=== PATIENT | male | born 1985 | race Caucasian/White ===

== ENCOUNTER 2024-12-07 18:30 | Observation (INO) | payer BC ==
[2024-12-07] MEDS ORDERED: ACETAMINOPHEN 500 MG TABLET (FP) ONE (18:51)
[2024-12-07] MEDS ORDERED: METHOCARBAMOL 500 MG TABLET ONE (18:51)
[2024-12-07] MEDS ORDERED: KETOROLAC TROMETHAMINE 30 MG/1 ML VIAL ONE (18:51)
[2024-12-07] MEDS ORDERED: LIDOCAINE 5% TOPICAL PATCH ONE (18:51)
[2024-12-07] MEDS: ACETAMINOPHEN 325 MG TABLET (FP) PO ONE (19:10)
[2024-12-07] MEDS: METHOCARBAMOL 500 MG TABLET PO ONE (19:10)
[2024-12-07] MEDS: KETOROLAC TROMETHAMINE 30 MG/1 ML VIAL IM ONE (19:12)
[2024-12-07] MEDS: LIDOCAINE 5% TOPICAL PATCH TP ONE (19:15)
[2024-12-07 19:32] VITALS: RESP 18
[2024-12-07] MEDS: SODIUM CHLORIDE 0.9% 500 ML INFUS.BAG IV ONE (19:46)
[2024-12-07] MEDS ORDERED: MAGNESIUM SULFATE IN WATER 2 GM/50 ML IVPB IVPB ONE (19:47)
[2024-12-07] MEDS: MAGNESIUM SULF 50% (8.12 MEQ/2 ML-1 GM VIAL) IVPB ONE (19:51)
[2024-12-07 20:27] LABS: ANION GAP 10 mmol/L (4-13); CALCIUM 9.6 mg/dl (8.5-10.1); CHLORIDE 104 mmol/L (98-107); CO2 25 mmol/L (21-32); CREATININE 0.7 mg/dl (0.6-1.3); GLUCOSE,RANDOM 101 mg/dl (74-106); MAGNESIUM 2.2 mg/dL (1.8-2.4); POTASSIUM 3.6 mmol/L (3.5-5.1); SODIUM 139 mmol/L (136-145)
[2024-12-07] MEDS ORDERED: DEXAMETHASONE SOD PHOSPHATE 10 MG/1 ML VIAL ONE (23:31)
[2024-12-07] MEDS ORDERED: diazePAM 5 MG TABLET ONE (23:31)
[2024-12-07] MEDS: diazePAM 5 MG TABLET PO ONE (23:40)
[2024-12-07] MEDS: DEXAMETHASONE SOD PHOSPHATE 10 MG/1 ML VIAL IVPB ONE (23:40)
[2024-12-07] MEDS: DEXAMETHASONE SOD PHOSPHATE 10 MG/1 ML VIAL IVPUSH ONE (23:41)
[2024-12-08] MEDS ORDERED: KETOROLAC TROMETHAMINE 30 MG/1 ML VIAL ONE (02:08)
[2024-12-08] MEDS: KETOROLAC TROMETHAMINE 30 MG/1 ML VIAL IVPUSH ONE (02:15)
[2024-12-08] MEDS: LIDOCAINE PATCH REMOVAL MC SCH (02:42)
[2024-12-08 02:59] LABS: URINE APPEARANCE CLEAR; URINE BILIRUBIN NEGATIVE (NEGATIVE); URINE COLOR YELLOW; URINE GLUCOSE (UA) NEGATIVE (NEGATIVE); URINE KETONE 1+ (NEGATIVE); URINE LEUK ESTERASE NEGATIVE (NEGATIVE); URINE NITRITE NEGATIVE (NEGATIVE); URINE PROTEIN NEGATIVE (NEGATIVE); URINE UROBILINOGEN 0.2 mg/dL (0.2-1.0)
[2024-12-08] MEDS: IBUPROFEN 400 MG TABLET (FP) PO PRN (06:46)
[2024-12-08] MEDS: LIDOCAINE PATCH REMOVAL MC ONE (06:47)
[2024-12-08 07:02] VITALS: BMI 24.1
[2024-12-08] MEDS: ACETAMINOPHEN 500 MG TABLET (FP) PO SCH (07:57)
[2024-12-08] MEDS ORDERED: CYCLOBENZAPRINE HCL 10 MG TABLET (FP) PO PRN (08:00)
[2024-12-08] MEDS: CYCLOBENZAPRINE HCL 5 MG TABLET PO PRN (08:03)
[2024-12-08] MEDS: methylPREDNISolone 4 MG TABLET PO ONE (08:05)
[2024-12-08] MEDS: NAPROXEN 500 MG TABLET PO SCH (09:22)
[2024-12-08] MEDS: LIDOCAINE 5% TOPICAL PATCH TP SCH (09:22)
[2024-12-08 11:54] VITALS: TEMP 97.5
[2024-12-08] MEDS: traMADol HCL 50 MG TABLET PO PRN (14:04)
[2024-12-08 15:04] VITALS: BP 109/57; PULSE 69
[2024-12-08] MEDS ORDERED: LIDOCAINE PATCH REMOVAL MC SCH (22:00)
== END 2024-12-08 16:53 | disposition home or self-care (01) ==
LOC: FER 18:30 → FM/S 12-08 01:57 → UNDOADMOB 12-08 02:19
PROVIDERS: ADMIT Internal Medicine; ATTEND Internal Medicine
PROC: 3E033GC Introduction of Other Therapeutic Substance into Peripheral Vein, Percutaneous Approach (ICD-10-PCS; principal; 2024-12-08)
PROC: 3E0233Z Introduction of Anti-inflammatory into Muscle, Percutaneous Approach (ICD-10-PCS; 2024-12-08)
PROC: 3E0333Z Introduction of Anti-inflammatory into Peripheral Vein, Percutaneous Approach (ICD-10-PCS; 2024-12-08)
PROC: 3E033GC Introduction of Other Therapeutic Substance into Peripheral Vein, Percutaneous Approach (ICD-10-PCS; 2024-12-08)
PROC: 3E0337Z Introduction of Electrolytic and Water Balance Substance into Peripheral Vein, Percutaneous Approach (ICD-10-PCS; 2024-12-08)
DX: M54.9 Dorsalgia, unspecified (principal); J45.909 Unspecified asthma, uncomplicated; G89.29 Other chronic pain; L50.8 Other urticaria; Z91.018 Allergy to other foods
CPT/HCPCS: 36415; 72131-TC; 80048; 81003; 82550; 83735; 96372; 96374; 96375; 97116-GP; 97162-GP; 99285-25; G0378; J1100